=== PATIENT | male | born 1955 | race Asian ===

== ENCOUNTER 2017-03-09 19:38 | Inpatient (IN) | payer BC ==
[~2017-03-09] VITALS: Ht 167.6 cm; Wt 86.2 kg
--- NOTE | 2017-03-09 19:57 | Emergency Room Report ---
History of Present Illness General Chief Complaint: Dizziness Source: Patient Present Illness HPI Patient presents with complaints of severe dizziness reports that about one hour ago after sitting up from laying position He began feeling lightheaded Dizzy He has had vertigo in the past last exacerbation was about 5 years ago however this episode felt significantly worse Denies any chest pain or shortness of breath He did initially feel nauseated but denies any fevers or chills Allergies: Coded Allergies: No Known Allergies (Unverified , 03/09/17) Patient History Past Medical History: see triage record Pertinent Family History: none Reviewed Nursing Documentation: PMH: Agreed, PSxH: Agreed Nursing Documentation-PMH Hx Diabetes: Yes Review of Systems All Other Systems: negative except mentioned in HPI Physical Exam Vital Signs Date Time Temp Pulse Resp B/P Pulse Ox O2 Delivery O2 Flow Rate FiO2 03/09/17 19:33 98.8 98 18 158/59 98 Room Air Sp02 EP Interpretation: reviewed, normal General Appearance: mild distress - patient appears uncomfortable Head: normocephalic, atraumatic Eyes: bilateral eye PERRL, bilateral eye EOMI ENT: hearing grossly normal, normal pharynx, TMs + canals normal, uvula midline Neck: full range of motion, supple, no meningismus, no bony tend Respiratory: lungs clear, normal breath sounds, no rhonchi, no respiratory distress, no retraction, no accessory muscle use Cardiovascular #1: normal peripheral pulses, regular rate, rhythm, no edema, no gallop, no JVD, no murmur Gastrointestinal: normal bowel sounds, non tender, soft, no mass, no organomegaly, non-distended, no guarding, no hernia, no pulsatile mass, no rebound Genitourinary: no CVA tenderness Musculoskeletal: normal inspection Neurologic: oriented x3, responsive, locks tender III-XII nml as tested, motor strength/ tone normal, sensory intact Psychiatric: mood/affect normal Skin: normal color, no rash, warm/dry, palpation normal Lymphatic: normal inspection, no adenopathy Medical Decision Making Diagnostic Impression: Primary Impression: Severe dizziness ER Course Patient is a fairly complex patient with multiple differential to consideration including but not limited to cardiac cardiopulmonary , intracranial and vascular emergencies Patient's initial workup is fairly benign CT imaging does not show any obvious acute pathology given the patient's severity of symptoms and intractable nausea with the dizziness the inability to ambulate patient was admitted for further care Labs Test 03/09/17 20:20 White Blood Count 10.3 K/UL (4.8-10.8) Red Blood Count 5.57 M/UL (4.70-6.10) Hemoglobin 14.7 G/DL (14.2-18.0) Hematocrit 43.7 % (42.0-52.0) Mean Corpuscular Volume 78 FL (80-99) Mean Corpuscular Hemoglobin 26.3 PG (27.0-31.0) Mean Corpuscular Hemoglobin Concent 33.6 G/DL (32.0-36.0) Red Cell Distribution Width 13.5 % (11.6-14.8) Platelet Count 258 K/UL (150-450) Mean Platelet Volume 5.7 FL (6.5-10.1) Neutrophils (%) (Auto) 66.4 % (45.0-75.0) Lymphocytes (%) (Auto) 25.6 % (20.0-45.0) Monocytes (%) (Auto) 5.1 % (1.0-10.0) Eosinophils (%) (Auto) 1.6 % (0.0-3.0) Basophils (%) (Auto) 1.4 % (0.0-2.0) Sodium Level 142 mEQ/L (135-145) Potassium Level 4.3 mEQ/L (3.4-4.9) Chloride Level 102 mEQ/L (98-107) Carbon Dioxide Level 25 mEQ/L (20-30) Anion Gap 15 (5-15) Blood Urea Nitrogen 24 mg/dL (7-23) Creatinine 1.0 mg/dL (0.7-1.2) Estimat Glomerular Filtration Rate > 60 mL/min (>60) Glucose Level 212 mg/dL (74-106) Calcium Level 9.4 mg/dL (8.6-10.2) Total Bilirubin 0.3 mg/dL (0.0-1.2) Aspartate Amino Transf (AST/SGOT) 20 U/L (5-40) Alanine Aminotransferase (ALT/SGPT) 27 U/L (3-41) Alkaline Phosphatase 59 U/L (40-129) Total Creatine Kinase 126 U/L (38-174) Creatine Kinase MB 1.9 ng/mL (< 6.7) Creatine Kinase MB Relative Index 1.5 Troponin I < 0.30 ng/mL (<=0.30) Total Protein 7.1 g/dL (6.6-8.7) Albumin 4.7 g/dL (3.5-5.2) Globulin 2.4 g/dL Albumin/Globulin Ratio 1.9 (1.0-2.7) Lipase 76 U/L (< 60) Rhythm Strip Diag. Results EP Interpretation: yes Rate: 78 Rhythm: NSR, no PVC's, no ectopy CT/MRI/US Diagnostic Results CT/MRI/US Diagnostic Results : Impression CT head no acute disease Last Vital Signs Date Time Temp Pulse Resp B/P Pulse Ox O2 Delivery O2 Flow Rate FiO2 03/09/17 19:33 98.8 98 18 158/59 98 Room Air Status: improved Disposition: ADMITTED INPATIENT Condition: Serious SHANNON ONOFRE D.O. Mar 09, 2017 19:57
[2017-03-09] MEDS ORDERED: Meclizine 25mg tab ORAL ONE (20:00)
[2017-03-09 20:36] LABS: BASOPHILS % (AUTO) 1.4 % (0.0-2.0); EOSINOPHILS % (AUTO) 1.6 % (0.0-3.0); LYMPHOCYTES % (AUTO) 25.6 % (20.0-45.0); MEAN CORPUSCULAR HEMOGLOBIN 26.3 PG (27.0-31.0); MEAN CORPUSCULAR HGB CONC 33.6 G/DL (32.0-36.0); MEAN CORPUSCULAR VOLUME 78 FL (80-99); MEAN PLATELET VOLUME 5.7 FL (6.5-10.1); MONOCYTES % (AUTO) 5.1 % (1.0-10.0); NEUTROPHILS % (AUTO) 66.4 % (45.0-75.0); PLATELET COUNT 258 K/UL (150-450); RED BLOOD COUNT 5.57 M/UL (4.70-6.10); RED CELL DISTRIBUTION WIDTH 13.5 % (11.6-14.8); WHITE BLOOD COUNT 10.3 K/UL (4.8-10.8)
[2017-03-09 20:59] LABS: TROPONIN I < 0.30 ng/mL (<=0.30)
[2017-03-09 21:03] LABS: ALANINE AMINOTRANSFERASE 27 U/L (3-41); ALBUMIN/GLOBULIN RATIO 1.9 (1.0-2.7); ANION GAP 15 (5-15); ASPARTATE AMINO TRANSFERASE 20 U/L (5-40); CALCIUM 9.4 mg/dL (8.6-10.2); CARBON DIOXIDE 25 mEQ/L (20-30); CHLORIDE 102 mEQ/L (98-107); GLOMERULAR FILTRATION RATE > 60 mL/min (>60); HEMOLYSIS 34; LIPASE 76 U/L (< 60); POTASSIUM 4.3 mEQ/L (3.4-4.9); SODIUM 142 mEQ/L (135-145); TOTAL PROTEIN 7.1 g/dL (6.6-8.7)
[2017-03-09 21:13] LABS: CKMB 1.9 ng/mL (< 6.7)
[2017-03-09 22:07] VITALS: BP 135/88
[2017-03-09 23:18] VITALS: BP 153/86
[2017-03-10] MEDS ORDERED: ASPIR 8181 MG ORAL (00:59)
[2017-03-10] MEDS ORDERED: GLUCOPHAGE1000 MG ORAL (00:59)
[2017-03-10] MEDS ORDERED: LOSARTAN POTAS100 MG ORAL (01:01)
[2017-03-10 04:00] VITALS: BP 125/75
[2017-03-10 08:00] VITALS: BP 114/73
[2017-03-10] MEDS ORDERED: NS 275ml ONE (08:45)
--- NOTE | 2017-03-10 09:16 | Diagnostic Imaging Report ---
Indications: Vertigo Technique: Continuous helical CT imaging of the brain was performed with automatic exposure control on a Siemens sensation [address] scanner. Axial and coronal images were reconstructed at 5 mm slice thickness and interval. CTDI volume(s): 70 mGy Total DLP: 1404 mGy-cm Findings: Comparison: None. Intracranial anatomy is unremarkable. No evidence of mass or hemorrhage, other attenuation abnormality, mass effect, midline shift, hydrocephalus or increased intracranial pressure. Bone window images are unremarkable. Small polypoid soft tissue density left maxillary sinus. Remainder visualized paranasal sinuses and mastoid air cells are clear. IMPRESSION: Small polyp versus retention cyst left maxillary sinus Otherwise negative noncontrast CT scan of the brain. Early/subtle acute abnormalities may be missed, however. If clinically indicated, MRI of the brain without and with gadolinium may be of benefit in further evaluation. This correlates with Dr. Carey's preliminary report. The CT scanner at [facility] is accredited by the [employer] and the scans are performed using protocols designed to limit radiation exposure to as low as reasonably achievable to attain images of sufficient resolution adequate for diagnostic evaluation.
[2017-03-10 12:00] VITALS: BP 127/88
--- NOTE | 2017-03-10 12:02 | Neurology Progress Note ---
Objective Physical Exam Last Vital Signs Date Time Temp Pulse Resp B/P (MAP) Pulse Ox O2 Delivery O2 Flow Rate FiO2 03/10/17 08:00 96.8 87 18 114/73 97 Room Air Laboratory Tests Test 03/09/17 20:20 White Blood Count 10.3 K/UL (4.8-10.8) Red Blood Count 5.57 M/UL (4.70-6.10) Hemoglobin 14.7 G/DL (14.2-18.0) Hematocrit 43.7 % (42.0-52.0) Mean Corpuscular Volume 78 FL (80-99) L Mean Corpuscular Hemoglobin 26.3 PG (27.0-31.0) L Mean Corpuscular Hemoglobin Concent 33.6 G/DL (32.0-36.0) Red Cell Distribution Width 13.5 % (11.6-14.8) Platelet Count 258 K/UL (150-450) Mean Platelet Volume 5.7 FL (6.5-10.1) L Neutrophils (%) (Auto) 66.4 % (45.0-75.0) Lymphocytes (%) (Auto) 25.6 % (20.0-45.0) Monocytes (%) (Auto) 5.1 % (1.0-10.0) Eosinophils (%) (Auto) 1.6 % (0.0-3.0) Basophils (%) (Auto) 1.4 % (0.0-2.0) Sodium Level 142 mEQ/L (135-145) Potassium Level 4.3 mEQ/L (3.4-4.9) Chloride Level 102 mEQ/L (98-107) Carbon Dioxide Level 25 mEQ/L (20-30) Anion Gap 15 (5-15) Blood Urea Nitrogen 24 mg/dL (7-23) H Creatinine 1.0 mg/dL (0.7-1.2) Estimat Glomerular Filtration Rate > 60 mL/min (>60) Glucose Level 212 mg/dL (74-106) H Calcium Level 9.4 mg/dL (8.6-10.2) Total Bilirubin 0.3 mg/dL (0.0-1.2) Aspartate Amino Transf (AST/SGOT) 20 U/L (5-40) Alanine Aminotransferase (ALT/SGPT) 27 U/L (3-41) Alkaline Phosphatase 59 U/L (40-129) Total Creatine Kinase 126 U/L (38-174) Creatine Kinase MB 1.9 ng/mL (< 6.7) Creatine Kinase MB Relative Index 1.5 Troponin I < 0.30 ng/mL (<=0.30) Total Protein 7.1 g/dL (6.6-8.7) Albumin 4.7 g/dL (3.5-5.2) Globulin 2.4 g/dL Albumin/Globulin Ratio 1.9 (1.0-2.7) Lipase 76 U/L (< 60) H Impression/Recommendations Problems: (1) BPPV (benign paroxysmal positional vertigo) Diagnostic Impression #[id number] ROBYN DALAL Mar 10, 2017 12:02
[2017-03-10] MEDS: Meclizine 25mg tab ORAL SCH ×3 (12:59→23:56)
--- NOTE | 2017-03-10 15:17 | Cardiology Report ---
APPROVED REPORT EKG Measurement Heart [id number] Normal sinus rhythm Normal ECG
[2017-03-10 16:00] VITALS: BP 107/85
[2017-03-10 20:00] VITALS: BP 118/77
[2017-03-11] VITALS: BP 107/69
--- NOTE | 2017-03-11 00:01 | Consultation ---
DATE OF CONSULTATION: 03/10/2017 NEUROLOGICAL CONSULTATION CONSULTING PHYSICIAN: Rene Guillaume M.D. REQUESTING PHYSICIAN: Ruben Bower M.D. HISTORY OF PRESENT ILLNESS: The patient is a 61-year-old male seen in neurological consultation to evaluate new onset of a severe positional vertigo. The patient informs me that last week, he was with signs of flu, coughing, and sneezing. Yesterday around 7 p.m. while being in bed resting, he developed acute spinning sensation when he turned around. He tried to get up, but he almost fell down. He developed nausea and became very concerned that this may represent a serious disease, so he called 911 and sent into emergency room. On admission, his blood pressure was 158/59 and heart rate of 98. His laboratory work included normal CBC. Unremarkable chemistry panel except BUN of 24 and blood sugar 212. A stat CT of the brain without contrast was essentially normal with small polyp versus retention cyst in the left maxillary sinus. Following admission, the patient was started on IV fluids, given meclizine and Zofran, this time, he fells "better." PAST MEDICAL HISTORY: The patient has a history of diabetes and history of positional vertigo, first time occurred seven years ago, total of three episodes occurred that year, all spontaneously resolving. MEDICATIONS: Current treatment limited to diabetic medications (cannot recall) and aspirin 81 mg daily. ALLERGIES: None reported. SOCIAL HISTORY: The patient works as an bank operations officer. No alcohol. No drug abuse. Nonsmoker. FAMILY HISTORY: Unremarkable except some members suffering from hypertension. REVIEW OF SYSTEMS: While in supine position and motionless, he has mild sensation of dizziness, but any turn to the right side causes him vertigo with nausea and very unstable gait. Denies unilateral weakness, numbness, or tingling. No chest pain or palpitations. No respiratory problems. No abdominal pain or discomfort. The patient is very anxious, "concerned that he may ." PHYSICAL EXAMINATION: GENERAL: A well-developed, well-nourished, pleasant man, in no acute distress, lying comfortably in bed in supine position. VITAL SIGNS: Now stable. Blood pressure 114/73 and temperature 96.8 degrees. HEENT: Head is normocephalic. No evidence of trauma. No pain to percussion of any mastoids. No otorrhea. No rhinorrhea. NECK: Supple. No meningeal signs. MUSCULOSKELETAL: Unremarkable. There is no deformities. Peripheral pulses 1+ symmetric. MENTAL STATUS: Alert and oriented x3 with no evidence of aphasia or apraxia. Cognitive function normal. Emotionally labile, afraid of dying from his condition. CRANIAL NERVE II: Pupils both responding to light and accommodation. Extraocular movement full range. Visual champagne are full on confrontation. Fundi are benign. CRANIAL NERVE V: Normal corneal responses. CRANIAL NERVE VII: No facial asymmetry. CRANIAL NERVE VIII: Normal hearing. Positive Dhaval-Hallpike maneuver with head turned to the right, sustained horizontal nystagmus noted. CRANIAL NERVES IX THROUGH XII: Tongue is in midline. Symmetric palate elevation. MOTOR EXAMINATION: Normal muscle tone. Strength 5/5 in all extremities. No involuntary movement. Deep tendon reflexes 1+ symmetric with downgoing toes on both sides. SENSORY EXAM: Normal in all modalities. GAIT: Not tested. The patient felt uncomfortable, fear of dizziness. IMPRESSION: 1. Recurrent benign paroxysmal positional vertigo. 2. Diabetes type 2. 3. Anxiety. RECOMMENDATION: 1. Dc maneuver. 2. Meclizine 12.5 mg q.i.d. 3. Valium 5 mg b.i.d. 4. ENT evaluation as outpatient to investigate the issue with electronystagmogram. Thank you for allowing me to see this interesting patient in neurological consultation. Rene Guillaume M.D. DR: ZULEIKA JOB#: [id number] CC:
--- NOTE | 2017-03-11 02:16 | History and Physical Report ---
DATE OF ADMISSION: 03/09/2017 NOTE: POOR AUDIO QUALITY HISTORY OF PRESENT ILLNESS: The patient is admitted for vertigo and dizziness and fall. CT head did not show any acute abnormality at this point. The patient reports that yesterday he started having vertigo and dizziness, especially when he was lying flat. This has happened to him several years ago. He is a [employer] [place] The patient also had headache associated with this when this happened. Denies vision changes. Denies diplopia. Denies nausea, vomiting, or diarrhea. Denies abdominal pain. No chest pain. PAST MEDICAL HISTORY: History of vertigo, history of NIDDM, and hypertension. PAST SURGICAL HISTORY: Appendectomy. MEDICATIONS: Metformin, aspirin, and losartan. ALLERGIES: No known allergies. SOCIAL HISTORY: No history of smoking, alcohol, or illicit drugs. He at home. 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 FAMILY HISTORY: Noncontributory. REVIEW OF SYSTEMS: HEENT: Denies headaches. Respiratory: Denies shortness of breath. Denies cough. Cardiovascular: Denies chest pain or orthopnea. Gastrointestinal: Denies nausea, vomiting, or diarrhea. Extremities: Denies any pain. Central Nervous System: Denies change in vision or speech pattern. He does have vertigo and dizziness. Also, has history of headache, it happened yesterday. PHYSICAL EXAMINATION: VITAL SIGNS: Temperature 98.8 degrees, pulse is 66, and blood pressure 135/88. HEENT: PERRLA. NECK: Supple. No lymphadenopathy. CHEST: Clear to auscultation. GASTROINTESTINAL: Soft, nontender, and nondistended. No organomegaly. EXTREMITIES: No edema. Moves all four extremities. NEUROLOGIC: Sensation intact to light touch. Reflexes equal on both sides. Moves all four extremities. vertigo. . ASSESSMENT AND PLAN: 1. Vertigo. 2. Elevated BUN. I have asked Dr. Raya, Dr. Guillaume, and Dr. Bella to see the patient for the above-mentioned diagnoses and treatment. Ruben Bower M.D. DR: AYANNA JOB#: [id number] CC:
[2017-03-11] MEDS: Meclizine 25mg tab ORAL SCH ×3 (05:33→18:26)
--- NOTE | 2017-03-11 06:15 | Consultation ---
DATE OF CONSULTATION: 03/10/2017 HEAD AND NECK SURGERY/ENT CONSULTATION REQUESTING PHYSICIAN: Ruben Bower M.D. CONSULTING PHYSICIAN: Davidson Bella M.D. INDICATION FOR CONSULTATION: The patient is a 61-year-old male who is dizzy, had a similar episode seven years ago, has not had any sense. When he came in the hospital, his glucose was 212, his BUN was 24, his creatinine was 1.5, his lipase was 76, and CK-MB was 1.5. PAST MEDICAL HISTORY: He denies any other medical problems, although he does have a high glucose and he has a high BUN and creatinine, therefore diabetes needs to be considered. MEDICATIONS: Meclizine, diazepam, Zofran, and acetaminophen. He was seen by Dr. Guillaume He has benign paroxysmal position vertigo, which he is doing better. He is no longer dizzy, able to turn his head without any problems. ALLERGIES: No known drug allergies. PHYSICAL EXAMINATION: VITAL SIGNS: He is 167.64 cm, 86.183 kilograms and BMI 30.7. HEENT: Eyes, PERRLA and EOMI. Lips, tongue, pharynx, and neck are all within normal limits. Ears, positive light reflex. Normal canal. NECK: No masses. DIAGNOSTIC DATA: CT scan of the sinus indicates a small left maxillary polyp, nothing to worry about. ASSESSMENT: Vertigo, not sure if this was caused by an occult diabetic issues with barometric pressure, viral infection, but seems to be getting better and controlled, could also have been due to dehydration. PLAN: I would discharge him with meclizine. If he continues to have problems when off the meclizine, he should get a VNG which my office can help him set up as an outpt. at [facility] [phone]. Thank you very much for asking my opinion in the care and treatment of this patient. Davidson Bella M.D. DR: SUMAN JOB#: [id number] CC: PRITESH
[2017-03-11 06:24] VITALS: BP 120/70
[2017-03-11 08:00] VITALS: BP 137/85
[2017-03-11 12:00] VITALS: BP 133/95
[2017-03-11 16:00] VITALS: BP 114/85
[2017-03-11] MEDS: metFORMIN 500mg tab ORAL SCH (18:26)
[2017-03-11 20:00] VITALS: BP 138/72
--- NOTE | 2017-03-11 20:31 | General Progress Note ---
Assessment/Plan Problem List: (1) Severe dizziness ICD Codes: R42 - Dizziness and giddiness SNOMED: 046590980 (2) BPPV (benign paroxysmal positional vertigo) ICD Codes: H81.10 - Benign paroxysmal vertigo, unspecified ear SNOMED: 722486413 Assessment/Plan discussed with dr michaud and dr norwood ct of brain doesnt show anything acute dc in am benign positional vertigo Subjective Allergies: Coded Allergies: No Known Allergies (Unverified , 03/09/17) Objective Last 24 Hour Vital Signs Date Time Temp Pulse Resp B/P (MAP) Pulse Ox O2 Delivery O2 Flow Rate FiO2 03/11/17 16:00 98.1 100 20 114/85 96 Room Air 03/11/17 12:00 97.0 67 18 133/95 96 Room Air 03/11/17 08:00 96.4 63 18 137/85 96 Room Air 03/11/17 06:24 97.4 64 18 120/70 94 Room Air 03/11/17 00:00 97.7 66 18 107/69 96 Intake and Output 03/11/17 03/12/17 19:00 07:00 Intake Total 480 ml Output Total 800 ml Balance -320 ml Intake Oral 480 ml Output Urine Total 800 ml # Voids 4 Height (Feet): 5 Height (Inches): 6.00 Weight (Pounds): 190 Ruben Bower MD Mar 11, 2017 20:31
[2017-03-12] VITALS (7 sets, daily range): BP systolic 101–131; BP diastolic 64–80
[2017-03-12] MEDS: Meclizine 25mg tab ORAL SCH ×5 (00:02→23:44)
[2017-03-12] MEDS: Aspirin Baby 81mg ORAL SCH (09:01)
[2017-03-12] MEDS: metFORMIN 500mg tab ORAL SCH ×2 (09:02→17:33)
[2017-03-12] MEDS: Losartan 50mg tab ORAL SCH (09:02)
[2017-03-12] MEDS ORDERED: MECLIZINE HCL12.5 MG ORAL (10:44)
--- NOTE | 2017-03-12 15:08 | Consultation ---
Consult Note Consult Note NEUROLOGY FOLLOW-UP NOTE 03/12/2017 INTERIM HISTORY: Mr. Sprague feels better. He is still vertiginous when he changes his position from lying to sitting or standing. The mind is clear. His strength is excellent. He has not noted any new neurologic symptoms. NEUROLOGIC REVIEW OF SYSTEMS: Benign. NEUROLOGIC EXAMINATION: Mental Status Examination: He was awake and alert. He was oriented to person, place and time, He was able to recall 3/3 words immediately and in 1 and 3 minutes. He was able to remember presidents Carrie through Daryl Tovar. His mathematical skills were good and so was his visuospatial function. Speech: Normal Language: Normal Cranial Nerve Examination: II through XII intact except for a few beats of nystagmus to the right and decreased hearing on finger rubbing on right. Motor Examination: G 5/5 in all muscle groups with normal tone and mass. Sensory Examination: Intact to pin prick, light touch and graphesthesia. Coordination: Intact to [id number] and heel to montes de oca testing. Unable to perform Romberg. Reflexes: 2+ and bilaterally symmetrical at the biceps, triceps, brachioradialis and knees. 1+ at both ankles. The plantar reflexes were flexor bilaterally. Stance: He stood up with support. Gait: He walked well with support. DIAGNOSTIC IMPRESSION: 1. 61 year-old, right-handed, gentleman with recent viral illness and vertigo. 2. The vertigo has improved but not resolved. 3. On neurological examination, at this time he does have a few beats of nystagmus to the right and has decreased hearing on the right. 4. The patient's history and neurologic examination are most compatible with labyrinthine vertigo which could be viral in nature. RECOMMENDATIONS: 1. Continue present management. 2. Increase activity as tolerated. 3. Valium 2 mg q HS for next few nights. 4. No contraindications to go home. 5. Follow-up with Dr. Guillaume in near future. Zeus Neff M.D., M.S.P.H. Neurologist & Clinical Neurophysiologist ZEUS NEFF Mar 12, 2017 15:08
--- NOTE | 2017-03-12 16:39 | General Progress Note ---
Assessment/Plan Problem List: (1) Severe dizziness ICD Codes: R42 - Dizziness and giddiness SNOMED: 340741405 (2) BPPV (benign paroxysmal positional vertigo) ICD Codes: H81.10 - Benign paroxysmal vertigo, unspecified ear SNOMED: 209851349 Assessment/Plan cleared by dr michaud and dr norwood for dc antivert prn benign positional vertigo Subjective ROS Limited/Unobtainable: Yes Allergies: Coded Allergies: No Known Allergies (Unverified , 03/09/17) Subjective dizzy Objective Last 24 Hour Vital Signs Date Time Temp Pulse Resp B/P (MAP) Pulse Ox O2 Delivery O2 Flow Rate FiO2 03/12/17 16:08 97.7 94 18 126/79 96 Room Air 03/12/17 12:06 96.8 68 18 131/79 99 Room Air 03/12/17 09:02 116/75 03/12/17 08:00 97.1 89 18 116/75 97 Room Air 03/12/17 04:00 97.2 61 20 101/64 95 Room Air 03/12/17 00:00 98.1 93 18 115/78 96 Room Air 03/11/17 20:00 97.2 105 20 138/72 95 Room Air Height (Feet): 5 Height (Inches): 6.00 Weight (Pounds): 190 Ruben Bower MD Mar 12, 2017 16:39
[2017-03-13 03:54] VITALS: BP 108/75
--- NOTE | 2017-03-13 04:45 | Consultation ---
DATE OF CONSULTATION: ENT AND HEAD AND NECK SURGERY CONSULT SUBJECTIVE: He is controlled and doing a little better on Antivert, but he wants to find out why he has this recurring problem and he is being discharged soon. OBJECTIVE: HEENT: Head, normocephalic. He is sitting up in bed without difficulty. Ears, positive light reflex. Normal canal. Nose normal. ASSESSMENT: Vertigo seems to be responding to treatment. PLAN: As an outpatient, to get a VNG once he is off the Antivert for three days or more. I gave him contact information to set up the VNG at [facility] [phone] and then to see me a couple weeks later. Davidson Bella M.D. DR: DARNELL JOB#: [id number] CC: PRITESH
[2017-03-13] MEDS: Meclizine 25mg tab ORAL SCH ×4 (06:20→23:48)
[2017-03-13 08:13] VITALS: BP 134/83
[2017-03-13] MEDS: Losartan 50mg tab ORAL SCH (08:37)
[2017-03-13] MEDS: metFORMIN 500mg tab ORAL SCH ×2 (08:38→17:41)
[2017-03-13] MEDS: Aspirin Baby 81mg ORAL SCH (08:38)
[2017-03-13 11:46] VITALS: BP 109/89
--- NOTE | 2017-03-13 13:09 | Neurology Progress Note ---
Interim History Interim History Interim History Mr. Sprague feels better today. He is less vertiginous when he changes his position from lying to sitting or standing. he has been up in the chair all morning and took a good walk with the therapists. The mind is clear. His strength is excellent. He has not noted any new neurologic symptoms. Review of Systems Neuro Review of Systems Benign. Objective Physical Exam Last Vital Signs Date Time Temp Pulse Resp B/P (MAP) Pulse Ox O2 Delivery O2 Flow Rate FiO2 03/13/17 11:46 97.5 92 19 109/89 96 Room Air Neurologic Exam Objective NEUROLOGIC EXAMINATION: Mental Status Examination: He was awake and alert. He was oriented to person, place and time, He was able to recall 3/3 words immediately and in 1 and 3 minutes. He was able to remember presidents Carrie through Daryl Tovar. His mathematical skills were good and so was his visuospatial function. Speech: Normal Language: Normal Cranial Nerve Examination: II through XII intact with no nystagmus. Motor Examination: G 5/5 in all muscle groups with normal tone and mass. Sensory Examination: Intact to pin prick, light touch and graphesthesia. Coordination: Intact to [id number] and heel to montes de oca testing. Unable to perform Romberg. Reflexes: 2+ and bilaterally symmetrical at the biceps, triceps, brachioradialis and knees. 1+ at both ankles. The plantar reflexes were flexor bilaterally. Stance: He stood up with support. Gait: He walked well with support. Impression/Recommendations Diagnostic Impression 1. 61 year-old, right-handed, gentleman with recent viral illness and vertigo. 2. He feels better today. The vertigo has improved significantly. 3. On neurological examination, at this time he does have decreased hearing on the right but the nystagmus is quiescent. 4. The patient's history and neurologic examination are most compatible with labyrinthine vertigo, which could be viral in nature, and is now resolving. Recommendations 1. Continue present management. 2. Increase activity as tolerated. 3. Valium 2 mg q HS for next few nights. 4. No contraindications to go home. Zeus Neff M.D., M.S.P.H. Neurologist & Clinical Neurophysiologist ZEUS NEFF Mar 13, 2017 13:09
[2017-03-13 16:03] VITALS: BP 101/71
[2017-03-13 20:00] VITALS: BP 118/74
--- NOTE | 2017-03-13 20:57 | General Progress Note ---
Assessment/Plan Problem List: (1) Severe dizziness ICD Codes: R42 - Dizziness and giddiness SNOMED: 140155282 (2) BPPV (benign paroxysmal positional vertigo) ICD Codes: H81.10 - Benign paroxysmal vertigo, unspecified ear SNOMED: 706442130 Assessment/Plan pt still dizzy and states doesnt feel safe to go home since lives by himself and is still dizzy antivert prn benign positional vertigo Subjective Allergies: Coded Allergies: No Known Allergies (Unverified , 03/09/17) Subjective dizzy Objective Last 24 Hour Vital Signs Date Time Temp Pulse Resp B/P (MAP) Pulse Ox O2 Delivery O2 Flow Rate FiO2 03/13/17 16:03 97.0 98 19 101/71 96 Room Air 03/13/17 11:46 97.5 92 19 109/89 96 Room Air 03/13/17 08:37 134/83 03/13/17 08:13 98.6 100 19 134/83 97 Room Air 03/13/17 03:54 96.8 67 20 108/75 94 Room Air 03/12/17 23:35 98.1 85 20 114/71 95 Room Air Intake and Output 03/13/17 03/14/17 19:00 07:00 Intake Total 620 ml Output Total 700 ml Balance -80 ml Intake Oral 620 ml Output Urine Total 700 ml # Bowel Movements 1 Height (Feet): 5 Height (Inches): 6.00 Weight (Pounds): 190 Ruben Bower MD Mar 13, 2017 20:57
[2017-03-14 00:42] VITALS: BP 111/63
[2017-03-14 04:55] VITALS: BP 108/67
[2017-03-14] MEDS: Meclizine 25mg tab ORAL SCH ×3 (05:36→17:47)
[2017-03-14 07:53] VITALS: BP 126/82
[2017-03-14] MEDS: metFORMIN 500mg tab ORAL SCH ×2 (08:06→17:47)
[2017-03-14] MEDS: Aspirin Baby 81mg ORAL SCH (08:06)
[2017-03-14] MEDS: Losartan 50mg tab ORAL SCH (08:06)
[2017-03-14 11:44] VITALS: BP 136/74
--- NOTE | 2017-03-14 13:29 | Neurology Progress Note ---
Interim History Interim History Interim History Mr. Sprague feels better today. He only had a single brief episode of vertigo this morning but has been free of vertigo since then. He walked a little today and was steadier. The mind is clear. His strength is excellent. He has not noted any new neurologic symptoms. He is anxious that the vertigo will bother him again. He has not been taking the Valium prescribed to him. Review of Systems Neuro Review of Systems Benign. Objective Physical Exam Last Vital Signs Date Time Temp Pulse Resp B/P (MAP) Pulse Ox O2 Delivery O2 Flow Rate FiO2 03/14/17 11:44 97.3 104 19 136/74 95 Room Air Neurologic Exam Objective NEUROLOGIC EXAMINATION: Mental Status Examination: He was awake and alert. He was oriented to person, place and time, He was able to recall 3/3 words immediately and in 1 and 3 minutes. He was able to remember presidents Carrie through Daryl Tovar. His mathematical skills were good and so was his visuospatial function. Speech: Normal Language: Normal Cranial Nerve Examination: II through XII intact with no nystagmus. Motor Examination: G 5/5 in all muscle groups with normal tone and mass. Sensory Examination: Intact to pin prick, light touch and graphesthesia. Coordination: Intact to [id number] and heel to montes de oca testing. Unable to perform Romberg. Reflexes: 2+ and bilaterally symmetrical at the biceps, triceps, brachioradialis and knees. 1+ at both ankles. The plantar reflexes were flexor bilaterally. Stance: He stood up with contact guard Gait: He walked well with contact guard. Impression/Recommendations Diagnostic Impression 1. 61 year-old, right-handed, gentleman with recent viral illness and vertigo. 2. He continues to feel better today. The vertigo has improved significantly. 3. On neurological examination, at this time he does have decreased hearing on the right but the nystagmus is quiescent and the rest of his examination is benign. He however is very anxious.. 4. The patient's history and neurologic examination are most compatible with labyrinthine vertigo, which could be viral in nature, and is now resolving. Recommendations 1. Continue present management. 2. Increase activity as tolerated. 3. Valium 2 mg q HS for next few nights. 4. No contraindications to go home. 5. Follow up in office in 6-8 weeks if discharged. Zeus Neff M.D., M.S.P.H. Neurologist & Clinical Neurophysiologist ZEUS NEFF Mar 14, 2017 13:29
[2017-03-14 15:43] VITALS: BP 117/89
[2017-03-14 20:00] VITALS: BP 112/76
--- NOTE | 2017-03-14 20:45 | General Progress Note ---
Assessment/Plan Problem List: (1) Severe dizziness ICD Codes: R42 - Dizziness and giddiness SNOMED: 305657913 (2) BPPV (benign paroxysmal positional vertigo) ICD Codes: H81.10 - Benign paroxysmal vertigo, unspecified ear SNOMED: 123237131 Status: progressing Assessment/Plan dizzy dc in am antivert prn benign positional vertigo Subjective ROS Limited/Unobtainable: Yes Allergies: Coded Allergies: No Known Allergies (Unverified , 03/09/17) Subjective dizzy Objective Last 24 Hour Vital Signs Date Time Temp Pulse Resp B/P (MAP) Pulse Ox O2 Delivery O2 Flow Rate FiO2 03/14/17 20:00 97.8 98 18 112/76 97 Room Air 03/14/17 15:43 97.6 104 19 117/89 97 Room Air 03/14/17 11:44 97.3 104 19 136/74 95 Room Air 03/14/17 08:06 126/82 03/14/17 07:53 97.6 81 19 126/82 98 Room Air 03/14/17 04:55 97.3 90 19 108/67 98 Room Air 03/14/17 00:42 97.2 94 19 111/63 96 Room Air Intake and Output 03/14/17 03/15/17 19:00 07:00 Intake Total 520 ml Output Total 500 ml Balance 20 ml Intake Oral 520 ml Output Urine Total 500 ml # Bowel Movements 1 Height (Feet): 5 Height (Inches): 6.00 Weight (Pounds): 190 Ruben Bower MD Mar 14, 2017 20:45
[2017-03-15] VITALS: BP 114/76
[2017-03-15 04:00] VITALS: BP 106/68
[2017-03-15 08:00] VITALS: BP 111/77
[2017-03-15] MEDS: Aspirin Baby 81mg ORAL SCH (09:43)
[2017-03-15] MEDS: Meclizine 25mg tab ORAL SCH ×2 (09:43→13:00)
[2017-03-15] MEDS: metFORMIN 500mg tab ORAL SCH (09:44)
[2017-03-15] MEDS: Losartan 50mg tab ORAL SCH (10:52)
--- NOTE | 2017-03-15 11:26 | Neurology Progress Note ---
Interim History Interim History Interim History Mr. Sprague feels much better today. He has had no vertigo today. He walked a little today and was steadier. The mind is clear. His strength is excellent. He has not noted any new neurologic symptoms. He is anxious that the vertigo will bother him again. Review of Systems Neuro Review of Systems Benign. Objective Physical Exam Last Vital Signs Date Time Temp Pulse Resp B/P (MAP) Pulse Ox O2 Delivery O2 Flow Rate FiO2 03/15/17 10:52 111/77 03/15/17 08:00 98.0 69 18 95 Room Air Neurologic Exam Objective NEUROLOGIC EXAMINATION: Mental Status Examination: He was awake and alert. He was oriented to person, place and time, He was able to recall 3/3 words immediately and in 1 and 3 minutes. He was able to remember presidents Carrie through Daryl Tovar. His mathematical skills were good and so was his visuospatial function. Speech: Normal Language: Normal Cranial Nerve Examination: II through XII intact with no nystagmus. Motor Examination: G 5/5 in all muscle groups with normal tone and mass. Sensory Examination: Intact to pin prick, light touch and graphesthesia. Coordination: Intact to [id number] and heel to montes de oca testing. Unable to perform Romberg. Reflexes: 2+ and bilaterally symmetrical at the biceps, triceps, brachioradialis and knees. 1+ at both ankles. The plantar reflexes were flexor bilaterally. Stance: He stood up with contact guard Gait: He walked well with contact guard. Impression/Recommendations Diagnostic Impression 1. 61 year-old, right-handed, gentleman with recent viral illness and vertigo. 2. He continues to feel better today. he has been free of vertigo today but still is anxious that it will recur. 3. On neurological examination, at this time he does have decreased hearing on the right but the rest of his examination is benign. He however is very anxious.. 4. The patient's history and neurologic examination are most compatible with labyrinthine vertigo, which could be viral in nature, and is now resolving. Recommendations 1. Continue present management. 2. Increase activity as tolerated. 3. Valium 2 mg q HS for next few nights. 4. No contraindications to go home. 5. Follow up in office in 6-8 weeks if discharged. Zeus Neff M.D., M.S.P.H. Neurologist & Clinical Neurophysiologist ZEUS NEFF Mar 15, 2017 11:26
[2017-03-15 12:00] VITALS: BP 116/78
[2017-03-15] MEDS ORDERED: VALIUM2 MG ORAL (12:03)
--- NOTE | 2017-03-15 12:17 | General Progress Note ---
Assessment/Plan Problem List: (1) Severe dizziness ICD Codes: R42 - Dizziness and giddiness SNOMED: 718567656 (2) BPPV (benign paroxysmal positional vertigo) ICD Codes: H81.10 - Benign paroxysmal vertigo, unspecified ear SNOMED: 756697363 Assessment/Plan dizzy dc in am antivert prn benign positional vertigo Subjective Allergies: Coded Allergies: No Known Allergies (Unverified , 03/09/17) Subjective not dizzy today.just light headedness. he walked in the room with walker in front of me i was present and watched him as he walked and sat by himself with help of walker dr norwood and dr michaud have already cleared him for dc i told him to f/u w dr michaud and recommend one week of rest gave prescription for his labryntitis otc for his prodrome viral cold Objective Last 24 Hour Vital Signs Date Time Temp Pulse Resp B/P (MAP) Pulse Ox O2 Delivery O2 Flow Rate FiO2 03/15/17 10:52 111/77 03/15/17 08:00 98.0 69 18 111/77 95 Room Air 03/15/17 04:00 98.1 74 20 106/68 96 Room Air 03/15/17 00:00 97.6 96 18 114/76 98 Room Air 03/14/17 20:00 97.8 98 18 112/76 97 Room Air 03/14/17 15:43 97.6 104 19 117/89 97 Room Air Height (Feet): 5 Height (Inches): 6.00 Weight (Pounds): 190 Ruben Bower MD Mar 15, 2017 12:17
[2017-03-15] MEDS ORDERED: MECLIZINE HCL25 MG ORAL (14:28)
--- NOTE | 2017-03-17 10:33 | Discharge Summary ---
Discharge Summary Hospital Course Date of Admission Mar 09, 2017 at 21:07 Date of Discharge Mar 15, 2017 at 16:37 Admitting Diagnosis severe dizziness, unable to ambulate HPI Dylon Sprague is a 61 year old male who was admitted on Mar 09, 2017 at 21:07 for Severe Dizziness/Unable To Ambulate Hospital Course dc summary #[id number] Discharge Medications Continued Medications: Diazepam* (Valium*) 2 Mg Tablet 2 MG ORAL QHS PRN for for dizziness, #30 TAB 0 Refills Meclizine Hcl* (Meclizine*) 25 Mg Tablet 25 MG ORAL BID for for dizziness, TAB 2 Refills Discontinued Medications: Meclizine Hcl* (Meclizine*) 12.5 Mg Tablet 12.5 MG ORAL Q6HR, TAB Discharge Condition Upon Discharge: stable Discharge Disposition Patient was discharged to Home (01) Discharge Diagnoses: Discharge Instructions Discharge Instructions Special Instructions I have been assigned to complete a D/C Summary on this account. I was not involved in the patient management Mariella Castañeda NP ([facility]anchtein) Mar 17, 2017 10:33
--- NOTE | 2017-03-18 01:00 | Discharge Summary 2 SIG ---
DATE OF ADMISSION: 03/09/2017 DATE OF DISCHARGE: 03/15/2017 The patient was admitted under Dr. Bower. REASON FOR ADMISSION: The patient is a 61-year-old male with history of diabetes, presented to emergency room with severe dizziness after he changed position from lying to sitting. The patient felt like lightheaded and dizzy. He had vertigo in the past around five years ago. However, this episode felt significantly worse. The patient came for evaluation. He denied chest pain. Denied shortness of breath. Initially, he felt nauseated, but no vomiting. He also denied fever or chills. Workup in the emergency room revealed stable vital signs. Laboratory workup revealed no leukocytosis. No anemia. Stable electrolytes. Troponin negative. EKG shows normal sinus rhythm. No acute ischemic changes. CT of the head subsequently was done and revealed no acute intracranial pathology. The patient was admitted for further management. ADMITTING DIAGNOSES: 1. Vertigo. 2. Possible recurrent benign positional vertigo. 3. Diabetes. 4. Anxiety. HOSPITAL STAY: The patient was admitted. Neurology consult was requested. Neurologist seen and evaluated the patient. Recommended Dc maneuver. He also recommended to start meclizine and Valium and increase activity as tolerated and recommended ENT evaluation. Subsequently, ENT evaluation was requested. ENT concur with the treatment of vertigo and stating that it could be either viral in nature versus BPV. The patient showed already some clinical improvement. Continue meclizine. He recommended that if his symptoms do not resolve, to have a video nystagmogram in the office for further testing. The patient was provided with office number to schedule outpatient appointment. The patient gradually increased his activity. Neurology closely followed on a daily basis. Neurologist concluded that the patient has possibly labyrinthine vertigo versus BPV. The patient gradually increased activity. Clinically improving with meclizine and Valium. The patient was stable for discharge home. Blood sugar was managed with current medication regimen of metformin. The patient was stable for discharge. DISCHARGE DIAGNOSES: 1. Vertigo. 2. Recurrent benign positional vertigo. 3. Possible labyrinthine vertigo. 4. Diabetes mellitus. 5. Anxiety. DISCHARGE MEDICATIONS: See medication reconciliation list. DISCHARGE INSTRUCTIONS: The patient was discharged home. FOLLOWUP: Follow up with the primary medical doctor. Follow up with the ENT if no improvement in system. Ruben Bower M.D. I have been assigned to dictate discharge summary on this account and I was not involved in the patient's management. Mariella Castañeda (vanchtein) NNaomi DR: LEESA JOB#: [id number] CC:
== END 2017-03-15 16:37 | disposition home or self-care (01) | DRG 149 ==
LOC: EDBD 19:38 → EMR 19:55 → 4E 21:07 → EDBEDREQ 21:15 → 4E 03-10 22:22
DX: H81.10 Benign paroxysmal vertigo, unspecified ear (principal); E11.9 Type 2 diabetes mellitus without complications; H81.09 Meniere's disease, unspecified ear; F41.9 Anxiety disorder, unspecified
CPT/HCPCS: 36415; 70450; 80053; 82550; 82553; 83690; 84484; 85025; 93005